=== PATIENT | male | born 1940 | race Caucasian/White ===

== ENCOUNTER 2016-06-02 08:58 | Day surgery (SDC) | payer MEDICARE, BC ==
[~2016-06-02] VITALS: Ht 177.8 cm; Wt 103.5 kg
[~2016-06-02 08:58] MED LIST: ASPIRIN E.C. 8181 MG PO; BETAPACE 120MG120 MG PO; BETIMOL 0.5% OPH5 ML OU; CEPHALEXIN500 M1 PO; COUMADIN 22.5 MG/TAB PO; COUMADIN 5MG5 MG/TAB PO; EPA FISH OIL1000 MG PO; FERROUS SULFAT325 M2 PO; FISH OIL 1000MG1 CAP PO; FISH OIL1000 MG PO; FLOMAX 0.40.4 MG/CAP PO; FOLIC ACID 40400 MCG PO; IRON TABLETS325 MG PO; METAMUCIL FIBE1 EACH PO; METAMUCIL1 WAF PO; METAMUCIL3.4 GM/DOS PO; MILK OF MA400 MG/5 M PO; MOTRIN 200200 MG/TAB; MOTRIN 200200 MG/TAB PO; MULTI VITAMINS1 TAB PO; NORCO 325 MG-51 TAB PO; NORCO 325 MG-7.1 TAB PO; PRILOSEC 20MG20 MG PO; ROXICODONE 55 MG/TAB PO; SENOKOT8.6 MG PO; THERAGRAN1 TA1 PO; TYLENOL 325MG325 MG PO; TYLENOL 500MG500 MG PO; VITAMIN C500 MG PO
[2016-06-02 09:40] VITALS: BP 117/87; PULSE 80; TEMP 97.8
[2016-06-02 11:05] VITALS: BP 112/79; PULSE 60
[2016-06-02 11:15] VITALS: BP 113/80; PULSE 62
== END 2016-06-02 11:34 | disposition home or self-care (01) ==
LOC: SDCO 08:58
DX: Z12.11 Encounter for screening for malignant neoplasm of colon (principal); K57.30 Diverticulosis of large intestine without perforation or abscess without bleeding; I48.91 Unspecified atrial fibrillation; Z86.010 Personal history of colon polyps; Z83.71 Family history of colonic polyps
CPT/HCPCS: J2250; J3010; J7030

== ENCOUNTER 2018-06-09 19:04 | Emergency (ER) | payer MEDICARE, BC ==
[~2018-06-09] VITALS: Ht 177.8 cm; Wt 104.5 kg
[2018-06-09 19:27] VITALS: TEMP 98.6
[2018-06-10 00:04] VITALS: BP 117/80; PULSE 74
== END 2018-06-10 00:05 | disposition home or self-care (01) ==
LOC: COL.ER 19:04
DX: S01.511A Laceration without foreign body of lip, initial encounter (principal); Z23 Encounter for immunization; W22.8XXA Striking against or struck by other objects, initial encounter; Y92.009 Unspecified place in unspecified non-institutional (private) residence as the place of occurrence of the external cause

== ENCOUNTER 2019-03-11 17:48 | Inpatient (IN) | payer MEDICARE, BC ==
[~2019-03-11] VITALS: Ht 177.8 cm; Wt 107.9 kg
[2019-03-11] MEDS ORDERED: ADVIL200 MG PO (18:15)
[2019-03-11 18:19] LABS: BASO # 0.1 (0.0-0.2); BASO % 0.7 % (0.0-2.0); EOS # 0.4 (0.0-0.7); EOS % 3.1 % (0-4.0); GRAN # 9.4 (1.4-6.5); GRAN % 70.9 % (42.2-75.2); HEMATOCRIT 48.2 % (42.0-52.0); HEMOGLOBIN 16.8 g/dl (13.5-18.0); LYMPH # 2.4 (1.2-3.4); LYMPH % 17.7 % (20.0-51.0); MEAN CELL VOLUME 93 fl (80.0-100.0); MEAN CORPUSCULAR HEMOGLOBIN 32 pg (27.0-31.0); MEAN CORPUSCULAR HGB CONC 35 g/dl (33.0-37.0); MEAN PLATELET VOLUME 10.4 fl (7.4-10.4); MONO # 0.9 (0.1-0.6); MONO % 6.9 % (1.7-9.3); PLATELET COUNT 168 K/mm3 (130-400); RED BLOOD COUNT 5.18 M/mm3 (4.20-5.60); REDCELL DISTRIBUTION WIDTH-CV 11.7 % (11.5-14.5)
[2019-03-11 18:23] LABS: INR 2.6 (0.8-3.0); PROTHROMBIN TIME 31.5 SECONDS (9.7-12.8)
[2019-03-11 18:45] LABS: ALBUMIN 4.4 gm/dL (3.5-5.0); CALCIUM 9.5 mg/dL (8.4-10.2); CREATININE, serum 1.03 (0.66-1.25); POTASSIUM 4.7 mmol/L (3.4-5.0); TOTAL PROTEIN 7.6 gm/dL (6.4-8.2)
[2019-03-11] MEDS ORDERED: METAMUCIL MUL0.52 GM PO (21:10)
--- NOTE | 2019-03-11 21:10 | NUR ---
ARRIVES PER CART FROM ED, DX FRACTURE OF LEFT ACETABULUM. IS ALERT AND ORIENTED X4. ASSISTED WITH SLIDE BOARD FROM CART TO BED. REPORTS PAIN 8/10 WITH MOVEMENT. PLACED CARLA HOSE ON RT LEG AND SCDS BILATERAL LOWER LEGS. SL TO LEFT AC WITHOUT REDNESS OR SWELLING. URINAL AT BEDSIDE.
[2019-03-11 21:23] VITALS: BP 140/73; PULSE 69; TEMP 97.9
--- NOTE | 2019-03-11 22:30 | NUR ---
DR CRAIG HERE TO SEE PATIENT. NEW ORDERS RECEIVED.
--- NOTE | 2019-03-11 22:56 | NUR ---
TAKES HS MEDS INCLUDING SCHEDULED TRAMADOL. USES URINAL WITHOUT PROBLEM. IVF INFUSING TO LEFT AC WITHOUT PROBLEM. SCDS ON BILATERAL LOWER LEGS. WILL BE NPO AFTER MIDNIGHT FOR POSSIBLE INTERVENTION WITH ORTHO. PT AWARE.
[2019-03-12 00:37] VITALS: BP 135/67; PULSE 74; TEMP 98.7
[2019-03-12 04:00] VITALS: BP 116/63; PULSE 70; TEMP 98
--- NOTE | 2019-03-12 04:00 | NUR ---
DENIES NEED FOR PAIN MEDS AT THIS TIME. IVF INFUSING WITHOUT PROBLEM.
--- NOTE | 2019-03-12 06:14 | NUR ---
TAKES AM MED WITH WATER. IVF COMPLETE AND CAPPED. VOIDING PER URINAL WITHOUT PROBLEM.
[2019-03-12 07:41] VITALS: BP 120/76; PULSE 70; TEMP 98.4
[2019-03-12 07:49] LABS: BASO # 0.1 (0.0-0.2); BASO % 0.6 % (0.0-2.0); EOS # 0.5 (0.0-0.7); EOS % 4.1 % (0-4.0); GRAN # 7.1 (1.4-6.5); GRAN % 65.7 % (42.2-75.2); HEMATOCRIT 45.5 % (42.0-52.0); HEMOGLOBIN 15.5 g/dl (13.5-18.0); LYMPH # 2.1 (1.2-3.4); LYMPH % 19.6 % (20.0-51.0); MEAN CELL VOLUME 95 fl (80.0-100.0); MEAN CORPUSCULAR HEMOGLOBIN 32 pg (27.0-31.0); MEAN CORPUSCULAR HGB CONC 34 g/dl (33.0-37.0); MEAN PLATELET VOLUME 11.4 fl (7.4-10.4); MONO % 9.6 % (1.7-9.3); PLATELET COUNT 143 K/mm3 (130-400); RED BLOOD COUNT 4.78 M/mm3 (4.20-5.60); REDCELL DISTRIBUTION WIDTH-CV 11.9 % (11.5-14.5)
[2019-03-12 07:50] LABS: INR 2.4 (0.8-3.0); PROTHROMBIN TIME 28.6 SECONDS (9.7-12.8)
[2019-03-12 08:02] LABS: CALCIUM 8.8 mg/dL (8.4-10.2); POTASSIUM 4.3 mmol/L (3.4-5.0)
--- NOTE | 2019-03-12 10:30 | NUR ---
SW met with the patient to discuss discharge plan. The patient lives in [place] with his , Roxy (ph#[phone]). He reports independence with ADLs prior to hospitalization and has a cane and walker. The patient's PCP is Dr. Mary Manley and he receives his medications at the [facility] in [facility]. He reports no difficulties obtaining his meds. The patient's advanced directives are in EMR and his is his DPOA-HC. The patient had a left acetabular fracture. The patient would like to return home with his upon discharge. Ortho has been consulted. SW to continue to follow.
[2019-03-12 12:14] VITALS: BP 137/82; PULSE 72; TEMP 98.2
--- NOTE | 2019-03-12 14:00 | NUR ---
Patient has been doing well today. He has denied pain. He is not working with PT today due to waiting for Ortho to review x-rays. No complaints of nausea. His only complaint is of dry eyes. No other changes at this time. Call light within reach.
[2019-03-12 15:47] VITALS: BP 111/73; PULSE 69; TEMP 97.7
[2019-03-12 19:54] VITALS: BP 131/83; PULSE 70; TEMP 98.1
--- NOTE | 2019-03-12 21:06 | NUR ---
Takes HS meds at this time, includes scheduled Tramadol. SL to left AC without redness or swelling. Taking oral fluids well, using urinal. Reports pain is much less today when he moves around, rates 3/10 at this time.
[2019-03-13] VITALS: BP 128/77; PULSE 76; TEMP 97.9
[2019-03-13 03:27] VITALS: BP 111/71; PULSE 71; TEMP 97.9
[2019-03-13 06:55] LABS: BASO # 0.1 (0.0-0.2); BASO % 0.4 % (0.0-2.0); EOS # 0.7 (0.0-0.7); EOS % 5.6 % (0-4.0); GRAN # 7.9 (1.4-6.5); GRAN % 63.7 % (42.2-75.2); HEMATOCRIT 46.9 % (42.0-52.0); HEMOGLOBIN 16.1 g/dl (13.5-18.0); LYMPH # 2.4 (1.2-3.4); LYMPH % 19.4 % (20.0-51.0); MEAN CELL VOLUME 95 fl (80.0-100.0); MEAN CORPUSCULAR HEMOGLOBIN 33 pg (27.0-31.0); MEAN CORPUSCULAR HGB CONC 34 g/dl (33.0-37.0); MONO # 1.3 (0.1-0.6); MONO % 10.3 % (1.7-9.3); PLATELET COUNT 126 K/mm3 (130-400); RED BLOOD COUNT 4.95 M/mm3 (4.20-5.60); REDCELL DISTRIBUTION WIDTH-CV 11.9 % (11.5-14.5)
[2019-03-13 07:08] LABS: INR 2.4 (0.8-3.0); PROTHROMBIN TIME 29.3 SECONDS (9.7-12.8)
[2019-03-13 07:14] LABS: ALBUMIN 3.9 gm/dL (3.5-5.0); BILIRUBIN,TOTAL 1.1 mg/dL (0.0-1.0); CALCIUM 9.2 mg/dL (8.4-10.2); CREATININE, serum 1.07 (0.66-1.25); POTASSIUM 4.2 mmol/L (3.4-5.0)
[2019-03-13 08:45] VITALS: BP 122/67; PULSE 70; TEMP 97.9
--- NOTE | 2019-03-13 11:30 | NUR ---
Patient has been doing well this am. He got up with PT and stated he struggled with it and the pain. No complaints of nausea. He was given one norco for pain this am. Asked if he wanted additional pain medications, he stated no. No other changes at this time. Call light within reach.
[2019-03-13 12:32] VITALS: BP 105/61; PULSE 71; TEMP 98.2
--- NOTE | 2019-03-13 13:46 | NUR ---
Patient doing well today, a/o x4, states pain level of 1 when not moving and at a 5 with movement, no bowel movement times 2 days, began bowel regimen. Patient resting comfortably in recliner, call light within reach, no further assistance required at this time.
--- NOTE | 2019-03-13 13:51 | NUR ---
KAIA met with the patient to review discharge plan and to discuss PT/OT's recommendation of IPR. The patient reports that the would be interested in post-acute rehab. KAIA provided the patient with Medicare.gov's list of SNF's in the [facility]. The patient chose 1)[facility]. He did not have a second preference. Patient Choice Form signed by the patient and he was provided a copy. KAIA consulted IPR Director, Roxane. KAIA awaiting their screen.
[2019-03-13 16:40] VITALS: BP 125/73; PULSE 70; TEMP 99.3
--- NOTE | 2019-03-13 18:00 | NUR ---
Patient has been doing well this afternoon. He stated he has some pain but it is not terrible at this time. Explained to take something for pain early in the morning so that he can hopefully have better pain control when working with PT. No complaints of nausea. No other changes at this time. Call light within reach.
--- NOTE | 2019-03-13 20:00 | NUR ---
PATIENT RESTING IN BED DURING SHIFT CHANGE REPORT FROM DAY SHIFT NURSE. REQUESTING PAIN MEDS WITH EVENING MEDS, ENCOURAGED PATIENT TO CALL STAFF WHEN HE NEEDS MORE PAIN MEDS IN THE NIGHT WHEN HE IS AWAKE.
[2019-03-13 21:04] VITALS: BP 128/76; PULSE 70; TEMP 99.6
--- NOTE | 2019-03-13 22:00 | NUR ---
PATIENT UP TO BEDSIDE COMMODE WITH ASSIST SLOWLY DUE TO DISCOMFORT WITH MOVEMENT OF LLE, CUED PATIENT DURING MOVEMENT FROM BED TO BEDSIDE COMMODE, TOLERATED WELL, GAIT STEADY.
[2019-03-14 01:52] VITALS: BP 133/75; PULSE 70; TEMP 97.9
[2019-03-14 03:44] VITALS: BP 102/69; PULSE 73; TEMP 97.8
[2019-03-14 07:25] LABS: INR 2.2 (0.8-3.0); PROTHROMBIN TIME 25.9 SECONDS (9.7-12.8)
[2019-03-14] MEDS ORDERED: NORCO 325 MG-7.1 TAB PO (07:25)
[2019-03-14 07:34] LABS: BASO # 0.1 (0.0-0.2); BASO % 0.6 % (0.0-2.0); CREATININE, serum 1.04 (0.66-1.25); EOS # 0.6 (0.0-0.7); EOS % 4.4 % (0-4.0); GRAN % 61.3 % (42.2-75.2); HEMATOCRIT 44.7 % (42.0-52.0); HEMOGLOBIN 15.5 g/dl (13.5-18.0); LYMPH # 2.9 (1.2-3.4); LYMPH % 22.1 % (20.0-51.0); MEAN CELL VOLUME 95 fl (80.0-100.0); MEAN CORPUSCULAR HEMOGLOBIN 33 pg (27.0-31.0); MEAN CORPUSCULAR HGB CONC 35 g/dl (33.0-37.0); MEAN PLATELET VOLUME 11.2 fl (7.4-10.4); MONO # 1.4 (0.1-0.6); PLATELET COUNT 131 K/mm3 (130-400); POTASSIUM 3.9 mmol/L (3.4-5.0); RED BLOOD COUNT 4.73 M/mm3 (4.20-5.60); REDCELL DISTRIBUTION WIDTH-CV 11.8 % (11.5-14.5)
--- NOTE | 2019-03-14 07:36 | NUR ---
PATIENT RESTING IN BED DURING SHIFT CHANGE REPORT GIVEN TO DAY SHIFT NURSE. SEE eMAR FOR PAIN MEDS GIVEN, PATIENT REMINDED TO CALL FOR PAIN MEDS WHEN NEEDED.
[2019-03-14 08:30] VITALS: BP 107/71; PULSE 80; TEMP 97.6
[2019-03-14] MEDS ORDERED: MIRALAX510G PO (10:32)
[2019-03-14] MEDS ORDERED: COLACE 100100 MG/CAP PO (10:32)
--- NOTE | 2019-03-14 10:54 | NUR ---
Roxane, IPR Director, reports that they are able to accept the patient. The patient is to discharge today, 03/14, to [facility]. No additional needs at this time.
[2019-03-14 11:22] VITALS: BP 111/85; PULSE 74; TEMP 97.6
--- NOTE | 2019-03-14 11:22 | NUR ---
REPORT TO [facility] IPR. PT TO THERAPY WITH JONNIE.
== END 2019-03-14 11:23 | disposition home or self-care (01) | DRG 536 ==
LOC: COL.ER 17:48 → SURG 20:15
PROVIDERS: Emergency Medicine; Nurse Practitioner Family; Physician Assistant; ADMIT Student in an Organized Health Care Education/Training Program
DX: S32.402A Unspecified fracture of left acetabulum, initial encounter for closed fracture (principal); I48.91 Unspecified atrial fibrillation; K21.9 Gastro-esophageal reflux disease without esophagitis; W18.30XA Fall on same level, unspecified, initial encounter; Y92.71 Barn as the place of occurrence of the external cause; M19.032 Primary osteoarthritis, left wrist; Z79.01 Long term (current) use of anticoagulants; Z95.0 Presence of cardiac pacemaker; Z96.653 Presence of artificial knee joint, bilateral; Z87.891 Personal history of nicotine dependence
CPT/HCPCS: OP; 99232-AI; 99239; A9284; G0378; J2270; J2405; J3010; J7030

== ENCOUNTER 2019-03-14 10:16 | Inpatient (IN) | payer MEDICARE, BC ==
[~2019-03-14] VITALS: Ht 177.8 cm; Wt 104.2 kg
[~2019-03-14 10:16] MED LIST changes: +ADVIL200 MG PO; +METAMUCIL MUL0.52 GM PO
[2019-03-14] MEDS ORDERED: MIRALAX510G PO (10:32)
[2019-03-14] MEDS ORDERED: COLACE 100100 MG/CAP PO (10:32)
[2019-03-14 14:59] VITALS: BP 111/85; PULSE 74; TEMP 97.6
--- NOTE | 2019-03-14 15:00 | NUR ---
Patient arrived to IPR room 334 this morning and immediatly started therapies. This nurse received report from JODI Logan. Patient is a DNR and an organ donor. Patient states that he has advanced directives that [facility] should have on file. Patient tolerated diet well this shift, and was in a pleasent mood. Reported off to night nurse.
[2019-03-14 18:55] VITALS: BP 118/71; PULSE 69; TEMP 99.2
--- NOTE | 2019-03-14 20:00 | NUR ---
SHIFT REPORT OBTAINED FROM ELLE Jung/ RN. PT SITTING UP IN RECLINER. VISITING. VERY SUPPORTIVE. MOD 1 ASSIST TO BR WITH WALKER. SLOW GAURDED UNSTEADY GAIT. PT ATTEMPTED TO HAVE BM. UNABLE. FEELS UNCOMFORTABLE. SEE MAR FOR PAIN MEDICATIONS AND DULCOLAX SUPP GIVEN. WEARS BRIEFS FOR RARE BLADDER INCONT. ASSISTED TO BED. CALL LIGHT IN REACH. BED ALARM SET.
--- NOTE | 2019-03-14 20:11 | NUR ---
Patient requested that nursing staff work with him on pain management prior to his therapies. He would like for staff to give him his pain meds 1 hour prior to therapy and would like two [place] at that time. This was reported off to night nurse to pass along to day nurse.
--- NOTE | 2019-03-14 21:30 | NUR ---
PT HAD LG HARD/ SOFT FORMED BM. RETURNS TO BED. READY FOR SLEEP. VERY TIRED.
[2019-03-14 23:40] VITALS: TEMP 98.6
--- NOTE | 2019-03-15 00:36 | NUR ---
INT NEEDLE DC'D TO LT AC SPACE. PT SITTING STRAIGHT UP IN BED. PT RELATES COMFOTABLE. DENIES NEED FOR PAIN MED AT THIS TIME. RECHECKED TEMP 98.5 ORALLY. USING INCENT SPIR. WELL.
[2019-03-15 05:24] VITALS: BP 128/60; PULSE 68; TEMP 97.9
--- NOTE | 2019-03-15 14:42 | NUR ---
Pt was incont of urine while on toilet riser, assisted with changing/cleansing, returned to wheelchair. visiting. Yellow gripper socks on pt, call lt in reach, hearing aid from home
[2019-03-15 16:04] VITALS: BP 108/68; PULSE 87; TEMP 98.4
--- NOTE | 2019-03-15 19:20 | NUR ---
Report to JODI Cuba. Pt in wheelchair, urinal in reach, declined ice pack, norco given
--- NOTE | 2019-03-15 20:00 | NUR ---
PT SITTING IN WC. ASSISTED WITH AMB IN ALLEN- APPROX 50FT WITH WALKR. PT DENIES ANY NUMBNESS OR TINGLING. TO BR. HAD SMALL LOOSE BROWN STOOL WITH VOID. TO BED. SCD'S ON. CALL LIGHT IN REACH. BED ALARM SET.
--- NOTE | 2019-03-16 02:01 | NUR ---
PT UP TO BR SEVERAL TO HAVE BM. JUST HAD A SM FIRM BROWN STOOL. STILL FEEL FEELS VERY CONSTIPATED. SE MAR FOR MEDS GIVEN.
--- NOTE | 2019-03-16 02:51 | NUR ---
NO RESULTS YET FROM BOWEL MEDS.
[2019-03-16 05:58] VITALS: BP 111/63; PULSE 72; TEMP 98
--- NOTE | 2019-03-16 15:00 | NUR ---
Patient has been doing well today. He has been up twice to walk in halls. No pain medications requestions. He has had one loose/liquid stool. Did not give miralax this am. No other changes at this time. Call light within reach.
[2019-03-16 15:24] VITALS: BP 114/63; PULSE 69; TEMP 97.2
--- NOTE | 2019-03-16 20:00 | NUR ---
PT RESTING IN BED. A&OX4. SHIFT ASSESSMENT COMPLETED. HELD BOWEL MEDS D/T LOOSE STOOLS. SEE MAR FOR PAIN MEDS GIVEN. CALL LIGHT IN REACH. BED ALARM SET.
[2019-03-17 05:38] VITALS: BP 100/74; PULSE 70; TEMP 97.7
[2019-03-17 06:58] LABS: PROTHROMBIN TIME 24.3 SECONDS (9.7-12.8)
--- NOTE | 2019-03-17 07:38 | NUR ---
Restingin bed at this time eating breakfast independently. Denies nausea and is passing gas.
--- NOTE | 2019-03-17 11:14 | NUR ---
SW met with the patient to complete initial intake, as the patient is new to [facility]. The patient lives in [place] with his , Roxy (ph#[phone]). He reports independence with ADLs prior to hospitalization and has a cane and walker. The patient's PCP is Dr. Mary Manley and he receives his medications at the [facility] in [facility]. He reports no difficulties obtaining his meds. The patient's advanced directives are in EMR. His DPOA-HC is his . The patient states that this weekend went alright and that he mostly slept. SW to continue to follow to ensure a safe discharge.
--- NOTE | 2019-03-17 13:28 | NUR ---
Patient attending therapies this shift. He ate all his lunch this afternoon. Reported some pain to his left hip and was given prn pain meds. Will continue to monitor. Patient very talkative this morning and in a pleasent mood.
--- NOTE | 2019-03-17 15:19 | NUR ---
Transferred patient from wheelchair to bed to take a nap. He is currently resting in bed, call light in reach and bed alarm is set.
--- NOTE | 2019-03-17 16:30 | NUR ---
KAIA met with the patient and his , Roxy, to discuss setting up a patient/family conference. A patient family conference was scheduled for this Sunday, 03/19, at 1300. KAIA to notify IPR Director.
[2019-03-17 16:36] VITALS: BP 120/70; PULSE 82; TEMP 97.9
--- NOTE | 2019-03-17 17:00 | NUR ---
Patient resting in bed, with by his side.
--- NOTE | 2019-03-17 20:00 | NUR ---
PATIENT RESTING IN BED DURING SHIFT CHANGE REPORT FROM DAY SHIFT NURSE. BED ALARM ON.
--- NOTE | 2019-03-18 01:29 | NUR ---
PATIENT AWAKE, BED ALARM ON. DENIES ANY NEEDS AT THIS TIME.
--- NOTE | 2019-03-18 03:32 | NUR ---
RESTING IN BED WITH EYES CLOSED, DOES NOT AWAKEN WHEN DOOR TO ROOM OPENED. BREATHING NONLABORED AND EVEN. BED ALARM ON.
[2019-03-18 04:51] VITALS: BP 112/71; PULSE 70; TEMP 97.1
--- NOTE | 2019-03-18 07:20 | NUR ---
PATIENT UP TO WHEELCHAIR, CHANGED FROM BUTTON DOWN SLEEPING SHIRT TO SHORTS/MARCIO SHIRT WITH SET UP ASSISTANCE, USED GRABBER AT TIMES, DURING SHIFT CHANGE REPORT GIVEN TO DAY SHIFT NURSE. CHAIR ALARM SET UP
--- NOTE | 2019-03-18 09:38 | NUR ---
Patient was independent with eating this morning as well has oral hygiene. He did all his cares while sitting in his wheelchair. Patient used his call light approriatly. Patient denies any questions at this time. He was given two [place] to prepare him for his physical therapies today. He is currently working with therapy at this time. Will continue to monitor.
[2019-03-18 16:15] VITALS: BP 120/67; PULSE 70; TEMP 98.1
--- NOTE | 2019-03-18 19:45 | NUR ---
PATIENT UP IN WHEELCHAIR DURING SHIFT CHANGE REPORT FROM DAY SHIFT NURSE. NO NEEDS REPORTED AFTER REPORT COMPLETED.
--- NOTE | 2019-03-18 20:45 | NUR ---
Patient was approved by therapy to be able to be left in his wheelchair without an alarm when in his room. He is still to call for assistance with transferring and or if he needs anything. Patient used his call light appropriatly this shift. He was independent with eating and grooming. He was observation only with sit to stand, used his walker appropriatly when walking to the bathroom. He was able to pull pants up and down, just needed help with wiping. He had a large BM this evening that was continent.
--- NOTE | 2019-03-19 02:00 | NUR ---
RESTING IN BED WITH EYES CLOSED, DOES NOT AWAKEN WHEN DOOR TO ROOM IS OPENED. BREATHING NONLABORED AND EVEN. BED ALARM ON.
[2019-03-19 05:00] VITALS: BP 139/91; PULSE 81; TEMP 97.9
--- NOTE | 2019-03-19 07:00 | NUR ---
PATIENT UP IN WHEEL CHAIR DURING SHIFT CHANGE REPORT GIVEN TO DAY SHIFT NAVEED. NO OTHER NEEDS REPORTED.
--- NOTE | 2019-03-19 12:35 | NUR ---
Bedside report from JODI Douglas. Pt in wheelchair, gripper socks and glasses in place, hearing aids in reach. Pt donned TEDS after therapy this morning. To recliner at this time for a nap. Progress notes state pt due for follow up radiographs, see new orders.
--- NOTE | 2019-03-19 14:48 | NUR ---
SW attended a patient conference meeting with the patient. The patient's was traveling here. Also present was IPR Director, PT, OT, and ST. IPR Director started by explaining the purpose of the meeting. PT/OT/ST then discussed the patient's progress and how he is doing well. IPR Director informed the patient of the team's recommendation of a discharge this Sunday, 03/21, with outpatient PT. The patient was in agreeance to this. The patient would like to receive outpatient PT at [facility]. The patient's RN, Kalli, secured the patient an outpatient appointment on 03/26 at 1400. The patient's then arrived. The patient was in therapy. SW presented and reviewed the IPR Team Conference Note with the patient's , Roxy. Roxy was also in agreeance to the discharge on Sunday. SW to continue to follow.
--- NOTE | 2019-03-19 15:56 | NUR ---
Admission QIM scores were reviewed by the team. Code of 2 chosen for toilet hygiene was determined by team discussion to be the most usual performance before interventions for this patient during the assessment period.--PD Raudel
[2019-03-19 16:10] VITALS: BP 98/60; PULSE 70; TEMP 98.2
--- NOTE | 2019-03-19 19:26 | NUR ---
Bedside report to JODI Cuba. Pt errol mod I in rm w/ walker.
--- NOTE | 2019-03-19 20:00 | NUR ---
PT SITTING ON SIDE OF BED. TAKING OFF SLIPPERS AND TEDS HOSE PER SELF. PT RELATES LT HIP/GROIN PAIN NEVER LESS THAN 6/10. PELVIC XRAY PENDING. MOD I IN ROOM. REMINDED PT TO CALL FOR ASSIST IF NEEDED. CALL [facility] IN [place].
[2019-03-20 06:03] VITALS: BP 108/66; PULSE 70; TEMP 97.5
--- NOTE | 2019-03-20 06:24 | NUR ---
PT REPORTED HAD X2 BM IN THE NIGHT.MED LOOSE BROWN. SLEPT IN THE RECLINER MOST OF THE SHIFT.
--- NOTE | 2019-03-20 10:05 | NUR ---
Bedside report from JODI Cuba. Pt errol mod I in rm w/ walker. Awake, A&O, pleasantly cooperative, gripper socks in place, glasses in place. Called ortho office to report that results of yesterday's f/u rads were available. Pain med given.
--- NOTE | 2019-03-20 15:49 | NUR ---
KAIA met with the patient to review discharge for tomorrow, 03/21. The patient asked about a wheelchair and if insurance would pay for it. KAIA informed the patient with how far he is walking, then insurance is unlikely to cover for it and it would be private pay to either rent or own. KAIA offered to contact and send a script to a preferred DME company. The patient reports that he would just prefer to own a wheelchair, to have one for him and his in the future. The patient states that he would like to contact the different DME companies and to look on [employer] to find a cheaper wheelchair. The patient had no other questions or concerns for KAIA about discharge. KAIA presented and explained the IM form to the patient. The patient verbalized understanding, signed, and he was provided a copy. KAIA to continue to follow.
[2019-03-20 18:44] VITALS: BP 103/62; PULSE 70; TEMP 97.9
--- NOTE | 2019-03-20 19:00 | NUR ---
SHIFT REPORT FROM KITA MARTINEZ RN. PT READY FOR PAIN MEDICATION. LEVEL 7/10. LT HIP/GROIN. PT MOD I IN ROOM. ABLE TO MANAGE SAFELY. CALL LIGHT IN REACH.
--- NOTE | 2019-03-20 19:51 | NUR ---
Bedside report to JODI Cuba. Pt errol mod I in rm w/ walker. Placed handicap placard form on chart for to sign tomorrow. Pt to continue touch weight bearing for six weeks, he is aware.
[2019-03-21 05:48] VITALS: BP 104/70; PULSE 69; TEMP 98
[2019-03-21 07:55] LABS: BASO # 0.1 (0.0-0.2); BASO % 1.1 % (0.0-2.0); EOS # 0.6 (0.0-0.7); EOS % 5.8 % (0-4.0); GRAN # 5.8 (1.4-6.5); GRAN % 57.1 % (42.2-75.2); HEMATOCRIT 45.3 % (42.0-52.0); HEMOGLOBIN 15.3 g/dl (13.5-18.0); LYMPH # 2.5 (1.2-3.4); MEAN CELL VOLUME 94 fl (80.0-100.0); MEAN CORPUSCULAR HEMOGLOBIN 32 pg (27.0-31.0); MEAN CORPUSCULAR HGB CONC 34 g/dl (33.0-37.0); MEAN PLATELET VOLUME 10.2 fl (7.4-10.4); MONO % 10.3 % (1.7-9.3); PLATELET COUNT 232 K/mm3 (130-400); REDCELL DISTRIBUTION WIDTH-CV 11.9 % (11.5-14.5)
--- NOTE | 2019-03-21 08:00 | NUR ---
Patient sittin up in recliner, Alert and oriented x 3. Assessment complete. CARLA hose to BLE. States pain 5/10 but states tolerable, will call when he feels like he needs something for pain. Denies further needs at this time.
[2019-03-21 08:05] LABS: CALCIUM 9.7 mg/dL (8.4-10.2); CREATININE, serum 1.11 (0.66-1.25); POTASSIUM 4.1 mmol/L (3.4-5.0)
[2019-03-21 08:13] LABS: INR 2.1 (0.8-3.0); PROTHROMBIN TIME 24.5 SECONDS (9.7-12.8)
[2019-03-21] MEDS ORDERED: TYLENOL 325MG325 MG PO (08:24)
[2019-03-21] MEDS ORDERED: NORCO 325 MG-51 TAB PO (08:26)
--- NOTE | 2019-03-21 11:18 | NUR ---
The patient is to discharge back home with his today, 03/21, with outpatient PT at [facility] in [place]. SW contacted and faxed the patient's orders to [facility] in [place]. No additional needs at this time.
--- NOTE | 2019-03-21 14:10 | NUR ---
Discharge education provided to patient. Activity and follow up appointment. Patient educated on when to call provider and all new medications. All questions answered. Patient out by wheelchair with family and surgical staff.
== END 2019-03-21 14:15 | disposition home or self-care (01) | DRG 561 ==
PROVIDERS: Hospitalist; ADMIT Internal Medicine
DX: S32.435D Nondisplaced fracture of anterior column [iliopubic] of left acetabulum, subsequent encounter for fracture with routine healing (principal); W19.XXXD Unspecified fall, subsequent encounter; M25.532 Pain in left wrist; I48.91 Unspecified atrial fibrillation; K21.9 Gastro-esophageal reflux disease without esophagitis; Z79.01 Long term (current) use of anticoagulants; Z79.891 Long term (current) use of opiate analgesic; Z95.0 Presence of cardiac pacemaker; Z96.653 Presence of artificial knee joint, bilateral; Z87.891 Personal history of nicotine dependence
CPT/HCPCS: 99231-AI; 99232-AI; 99239